=== PATIENT | male | born 1985 | race American Indian/Alaskan Native ===

== ENCOUNTER 2018-05-30 11:04 | Emergency (ER) | payer OTHER ==
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
[2018-05-30 11:15] VITALS: BP 128/89
--- NOTE | 2018-05-30 12:27 | XRay Report ---
AP AND LATERAL LUMBOSACRAL SPINE: History: Back pain. The vertebral bodies are well mineralized and normal in alignment. No evidence for compression deformity or bone lesion. Mild disc space narrowing is identified at L4-5. The remaining disc levels are within normal limits. The facet joints are unremarkable. IMPRESSION: Mild degenerative disc disease at L4-5.
[2018-05-30] MEDS ORDERED: IBUPROFEN PO ONE (12:58)
[2018-05-30] MEDS ORDERED: FLEXERIL PO ONE (12:58)
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
== END 2018-05-30 13:24 | disposition home or self-care (01) ==
LOC: ED 11:04
DX: S39.012A Strain of muscle, fascia and tendon of lower back, initial encounter (principal); V49.59XA Passenger injured in collision with other motor vehicles in traffic accident, initial encounter; Y93.89 Activity, other specified; Y92.89 Other specified places as the place of occurrence of the external cause; Y99.8 Other external cause status
CPT/HCPCS: 72100